=== PATIENT | female | born 1990 | race Two or more races ===

== ENCOUNTER → 2023-10-26 | Emergency (ER) | payer OTHER ==
[~2023-10-26] VITALS: Ht 165.1 cm; Wt 77.1 kg
[~2023-10-26] MED LIST: 0.9 % SODIUM CHLORIDE 1,000 ML IV STA; FAMOTIDINE/PF 20 MG in 0.9 % SODIUM CHLORIDE 8 ML IV PUSH STA; ONDANSETRON HCL 2 MG/ML VIAL IV STA
[2023-10-26 19:14] LABS: HEMATOCRIT 41.1 % (36.0-45.00); HEMOGLOBIN 13.8 g/dL (12.0-15.00); MEAN CELL VOLUME 86.3 fL (80.00-100.00); MEAN CORPUSCULAR HGB CONC 33.6 g/dl (32.0-36.0); PLATELET COUNT 280 K/uL (150-450); RED BLOOD COUNT 4.77 M/uL (4.00-6.00); RED CELL DISTRIBUTION WIDTH 14.2 % (11.5-14.5)
[2023-10-26 19:33] LABS: CALCIUM 9.2 mg/dL (8.5-10.1); CREATININE SERUM 0.73 mg/dL (0.55-1.02); GFR 91.26; POTASSIUM 4.24 mEq/L (3.5-5.1)
== END | disposition left against medical advice (07) ==
LOC: ER 18:14
PROVIDERS: Emergency Medicine
DX: K29.60 Other gastritis without bleeding (principal); Z88.8 Allergy status to other drugs, medicaments and biological substances